=== PATIENT | female | born 1995 | race Caucasian/White ===

== ENCOUNTER → 2021-02-27 | Outpatient (CLI) | payer OTHER ==
[~2021-02-27] VITALS: Ht 167.6 cm; Wt 69.4 kg
[~2021-02-27] MED LIST: ALPR0.25 PO; CETI10TA74 PO
--- NOTE | 2021-02-27 12:04 | RAD ---
NM HEPATOBILIARY SCAN W/PHARM History:Reason: EPIGASTRIC PAIN / Spl. Instructions: Comparison: Ultrasound February 27, 2021 Technique: 5.5 mCi technetium 99m Choletec was administered intravenously and spot views were obtain ed on the gamma camera for a Nuclear Medicine hepatobiliary scan. 8 ounces ensure was administered and the region of interest was drawn around the gallbladder and gall bladder ejection fraction was calculated. Findings: There is rapid uptake of activity from the blood pool and concentration in the liver. Activity seen i n the gallbladder at 10 minutes and small bowel at 40 minutes. There is a response of the gallbladder to ensure and the gallbladder ejection fraction is 90% which i s normal. Impression: 1. Normal hepatobiliary scan. Normal gallbladder ejection fraction. Electronically signed by: Joel Joyner DO (02/27/2021 12:02 PM) [id number]
--- NOTE | 2021-02-27 12:05 | RAD ---
US ABDOMEN LIMITED History: Reason: Epigastric pain / Spl. Instructions: / History: Comparison: None. Technique: Transabdominal ultrasound images are obtained of the right upper quadrant. Findings: Liver is normal in echogenicity. Right hepatic lobe measures 16.3 cm. Portal flow is hepatopedal. Gallbladder has an unremarkable appearance. Common bile duct measures 3 mm in diameter. Visualized pancreas unremarkable. The right kidney measures 10.9 x 4.9 x 4.7 cm. No hydronephrosis. Visualized portions of the aorta and IVC have normal caliber. IMPRESSION: 1. Unremarkable right upper quadrant ultrasound. Electronically signed by: Joel Joyner DO (02/27/2021 12:02 PM) [id number]
== END ==
LOC: US 09:36
PROVIDERS: ATTEND Internal Medicine Gastroenterology
DX: R10.13 Epigastric pain (principal)
CPT/HCPCS: 76705; 78227; A9537